=== PATIENT | female | born 1965 | race Caucasian/White ===

== ENCOUNTER 2017-01-15 16:30 | Emergency (ER) | payer MEDICAID ==
--- NOTE | ~2017-01-15 | ER ---
PATIENT'S NAME: RIC ESTRADA [facility] AGE: 51 Y [address] ROOM: [place] [id number] LOCATION: ED ADMIT DATE: 01/15/2017 ER/Outpatient Report DISCHARGE DATE: 01/15/2017 FAMILY PHYSICIAN: Physician, Unknown ATTENDING PHYSICIAN: Tano Brown Time of Arrival: 1635 hours. Time of Evaluation: 1635 hours. CHIEF COMPLAINT: Dizziness and chest heaviness. HISTORY OF PRESENT ILLNESS: The patient states for the past 3 or 4 days, she has not felt well. States today she developed some chest heaviness. She has been dizzy, nauseous, and weak. States she feels short of breath today. Denies vomiting. Has not had any change in her bowel pattern. She states this morning about 7 o'clock, she turned over in bed and that is when she developed heavy sensation under the left breast. ALLERGIES: ON HER CHART AND REVIEWED BY ME. CURRENT MEDICATIONS: On her chart and reviewed by me. PAST MEDICAL HISTORY: Congestive heart failure, but denies having had AR in the past; COPD; GERD; and hypertension. PAST SURGERIES: Heart cath, x3, bunion repair, and hammertoe repair. SOCIAL HISTORY: She reports she smokes 3 packs per day. Denies use of drugs or alcohol. REVIEW OF SYSTEMS: All negative other than those mentioned in the HPI. PHYSICAL EXAMINATION: VITAL SIGNS: She weighed 129 kg, blood pressure is 171/92, pulse is 65, respirations 20, temperature of 98.7 tympanic, and O2 saturation is 98% on room air. GENERAL: She is awake, alert, and oriented x4. SKIN: [place], warm, and dry. PATIENT'S NAME: RIC ESTRADA [facility] AGE: 51 Y [address] ROOM: [place], [place] [address] LOCATION: [facility] ADMIT DATE: 01/15/2017 ER/Outpatient Report DISCHARGE DATE: 01/15/2017 FAMILY PHYSICIAN: Physician, Unknown ATTENDING PHYSICIAN: Tano Brown RESPIRATIONS: Even and nonlabored. Lung sounds are clear throughout, but decreased in the bases. HEART: Regular rate and rhythm. ABDOMEN: Soft. Nondistended. Bowel sounds are present. EXTREMITIES: She moves all extremities strongly and equally. No peripheral edema is noted. EMERGENCY DEPARTMENT COURSE: The patient arrived per [facility]. They had gotten a blood sugar of 84 and gave her 4 baby aspirins. Saline lock was initiated. Lab work was drawn. EKG was completed. EKG shows normal sinus rhythm. CBC is within normal limits. Chem panel is within normal limits. Magnesium is 2.1. CPK is 95. CK-MB is negative. Troponin is negative. Amylase was 16 with a lipase of 77. The patient was monitored. Vital signs remained stable. Her O2 saturation remained greater than 95% on room air. Upon further evaluation, the patient reports she is having some difficulty with her significant other. Feels like stress is a big part of what is causing her discomfort. She also states she is having some right upper quadrant abdominal pain. Bowel sounds are strong. No pain with palpation. Repeat EKG and enzymes are all within normal limits. IMPRESSION: Abdominal pain and epigastric pain. PLAN: Home. Rest. Fluids. Continue her current medications. I did discuss smoking cessation in long detail with the patient. The patient states she is going to go stay with her son for a while and get out of the stressful situation that she is in. She is to follow up with her primary provider in the next 2 to 3 days or return to the ER if symptoms persist. She verbalized understanding. MAAME SOW APRN FOR MD VISHNU MAY/jeyson /[id number] d: 01/17/171927 t: 02/06/171933, OUTPATIENT REPORT
[~2017-01-15 16:30] MED LIST: ALDACTONE25 MG PO; ASPIRIN (CHILDR81 MG PO; HYDROCHLOROTHIA25 MG PO; LOPRESSOR50 MG PO; MACROBID100 MG PO; PRILOSEC20 M1 PO; PROAIR RESPICL90 MCG INH; STOOL SOFTENER100 M1 PO; XANAX0.5 MG PO
[2017-01-15 16:57] LABS: BASOPHIL # 0.1 K/uL (0.0-0.2); BASOPHIL % 1.2 %; EOSINOPHIL # 0.2 K/uL (0.0-0.5); EOSINOPHIL % 2.1 %; HEMATOCRIT 44.3 % (33.0-46.0); HEMOGLOBIN 14.5 g/dL (10.0-15.0); IMMATURE GRANULOCYTE % 0.3 %; LYMPHOCYTE # 3.7 K/uL (0.8-4.0); LYMPHOCYTE % 37.5 %; MCH 27.9 pg (27.0-34.0); MCHC 32.7 gm/dL (32.0-36.5); MCV 85.4 fl (83.0-98.0); MONOCYTE # 0.6 K/uL (0.0-1.0); MONOCYTE % 5.8 %; MPV 10.2 fl (9.4-12.4); NEUTROPHIL # (ANC) 5.3 K/uL (1.8-7.8); NEUTROPHIL % 53.1 %; NRBC % 0 /100WBC (0-0.00); PLATELET COUNT 240 K/uL (150-450); RBC 5.19 M/uL (3.50-5.50); RDW-CV 12.9 % (11.9-14.6); WBC 9.9 K/uL (4.0-11.0)
[2017-01-15 17:13] LABS: INR - (THERAPEUTIC) 0.95 (0.92-1.07); PTT 26 SECONDS (25-32)
[2017-01-15 17:17] LABS: ALBUMIN 3.2 gm/dL (3.5-5.0); ALK PHOS 94 IU/L (33-138); ALT 35 IU/L (12-78); ANION GAP 12.7 (10.0-19.0); AST 22 IU/L (10-40); BLOOD UREA NITROGEN 9 mg/dL (6-24); CALCIUM 8.4 mg/dL (8.5-10.5); CHLORIDE 110 mMol/L (96-110); CO2 25 mMol/L (22-32); CPK 95 IU/L (21-215); CREATININE 0.9 mg/dL (0.5-1.1); ESTIMATED GFR (MDRD EQUATION) > 60; MAGNESIUM 2.1 mg/dL (1.8-2.6); POTASSIUM 3.7 mMol/L (3.7-5.1); SODIUM 144 mMol/L (135-145); TOTAL BILIRUBIN 0.4 mg/dL (0.0-1.5); TOTAL PROTEIN 6.7 g/dL (6.0-8.4)
[2017-01-15 19:16] LABS: CPK 91 IU/L (21-215)
== END 2017-01-15 19:28 | disposition disaster alternative care site (69) ==
LOC: GMED 16:30
PROVIDERS: Nurse Practitioner Family
DX: R10.13 Epigastric pain (principal); I11.0 Hypertensive heart disease with heart failure; I50.9 Heart failure, unspecified; J44.9 Chronic obstructive pulmonary disease, unspecified; F17.210 Nicotine dependence, cigarettes, uncomplicated; Z88.5 Allergy status to narcotic agent; Z88.8 Allergy status to other drugs, medicaments and biological substances; Z79.899 Other long term (current) drug therapy